=== PATIENT | female | born 1945 | race Caucasian/White ===

== ENCOUNTER 2019-05-23 08:22 | Emergency (ER) | payer OTHER ==
[2019-05-23 08:32] VITALS: BP 94/71
--- NOTE | 2019-05-23 09:56 | ER Document Report ---
HPI - HPI Patient complains to provider of: bilateral leg swelling Time Seen by Provider: 05/23/19 09:38 Onset: Other Onset/Duration: Better Quality of pain: No pain Pain Level: Denies Context: 73-year-old female with history of colitis presents to the emergency department with reports that she traveled from [place] to the [facility] Sunday. She reports she noted a rash around her left ankle while driving here. She reports the rash started up both her legs with bilateral swelling noted. She went to urgent care yesterday and they put her on Keflex. She reports the rash is better the swelling is gone down. She reports she started a new medication Lexapro last Sunday and contacted her provider who told her to stop taking it. She has not had a dose since this past Sunday. She denies trouble breathing. No cough. No other symptoms such as fever vomiting diarrhea. She reports she is allergic to a lot of different antibiotics. Patient has pen pedro on her bilateral lower legs where she has written to monitor the rash. No rash noted now. No pedal swelling. Patient is tender to the right miller to touch no calf pain. Denies fever vomiting diarrhea. Denies history of diabetes, CHF. Associated Symptoms: None Exacerbated by: Denies Relieved by: Denies Similar symptoms previously: No Recently seen / treated by doctor: No - CONSTITUTIONAL Constitutional: DENIES: Fever, Chills - EENT EENT: DENIES: Sore Throat, Ear Pain, Eye problems - NEURO Neurology: DENIES: Headache, Weakness, Vision blurred, Dizzinesss / Vertigo - CARDIOVASCULAR Cardiovascular: DENIES: Chest pain - RESPIRATORY Respiratory: DENIES: Trouble Breathing, Coughing - GASTROINTESTINAL Gastrointestinal: DENIES: Abdominal Pain, Black / Bloody Stools - URINARY Urinary: DENIES: Dysuria, Urgency, Frequency - REPRODUCTIVE Reproductive: DENIES: : - MUSCULOSKELETAL Musculoskeletal: REPORTS: Extremity pain - with touch Past Medical History - Social History Smoking Status: Unknown if Ever Smoked Chew tobacco use (# tins/day): No Frequency of alcohol use: None Drug Abuse: None Family History: None Patient has suicidal ideation: No Patient has homicidal ideation: No GI Medical History: Reports: Other - Colitis Psychiatric Medical History: Reports: Hx Anxiety, Hx Depression - anxiety Past Surgical History: Reports: Hx Abdominal Surgery, Hx Appendectomy, Hx Gynecologic Surgery - ovary Vertical Provider Document - CONSTITUTIONAL Agree With Documented VS: Yes Exam Limitations: No Limitations, Physical Impairment General Appearance: No Apparent Distress - INFECTION CONTROL TRAVEL OUTSIDE OF THE [place] IN LAST 30 DAYS: No - HEENT HEENT: Atraumatic, Normocephalic. negative: Conjuctival Injection, Pharyngeal Erythema - NECK Neck: Normal Inspection, Supple - RESPIRATORY Respiratory: Breath Sounds Normal, No Respiratory Distress. negative: Rhonchi, Wheezing - CARDIOVASCULAR Cardiovascular: Regular Rate - MUSCULOSKELETAL/EXTREMETIES Musculoskeletal/Extremeties: MAEW, FROM, Tender - right miller ttp, no erythema, no pitting edema, good pedal pulse, cap refill <3 sec - NEURO Level of Consciousness: Awake, Alert, Appropriate Motor/Sensory: No Motor Deficit - DERM Integumentary: Warm, Dry, No Rash Course - Re-evaluation Re-evalutation: 05/23/19 09:56 73-year-old female presents emergency department with concerns regarding a rash that was to bilateral lower legs that started Sunday while driving this area from [place]. She reports she just started taking the new medication, Lexapro. She took it for one week. She has quit taking that medication since Sunday. She was placed on Keflex by an urgent care. She denies trouble breathing. No other symptoms such as fever vomiting diarrhea. No pitting edema appreciated no rash noted. Cap refill less than 3 6 and pedal pulse good. Patient was instructed to follow-up with her prior provider as soon as she returns to [place]. She reports she already has an appointment. Patient wondered if she should be on steroids also. She is having no trouble breathing. No obvious swelling with no obvious erythema. She was instructed to continue taking the Keflex but return for any trouble breathing any concerns. She verbalized understand all instructions. Dictation of this chart was performed using voice recognition software; therefore, there may be some unintended grammatical errors. - Vital Signs Vital signs: Temp Pulse Resp BP Pulse Ox 97.5 F 64 18 94/71 L 99 05/23/19 08:29 05/23/19 08:29 05/23/19 08:29 05/23/19 08:29 05/23/19 08:29 Discharge - Discharge Clinical Impression: Allergic reaction Condition: Stable Disposition: HOME, SELF-CARE Instructions: Acute Allergic Reaction ([facility]) Additional Instructions: *You have been evaluated for a possible allergic reaction to Lexapro *Monitor your legs for return of swelling, return of rash *Take Benadryl as indicated *Follow up with a primary care provider upon the return to [place] as scheduled *Return to ED for worsening condition, changes, needs, trouble breathing, concerns
== END 2019-05-23 09:55 | disposition home or self-care (01) ==
LOC: ER 08:22
DX: T78.40XA Allergy, unspecified, initial encounter (principal); X58.XXXA Exposure to other specified factors, initial encounter; R52 Pain, unspecified; Z88.1 Allergy status to other antibiotic agents
CPT/HCPCS: 99283